=== PATIENT | male | born 1935 | race Caucasian/White ===

== ENCOUNTER 2019-04-20 23:06 | Emergency (ER) | payer MEDICARE ==
[~2019-04-20 23:06] MED LIST: cloNIDine 0.1 MG TAB ONE
[2019-04-20] MEDS ORDERED: cloNIDine 0.1 MG TAB ONE (23:25)
[2019-04-20] MEDS ORDERED: Nitroglycerin 2% Ointment 1 INCH/1 GM Packet ONE (23:25)
[2019-04-20] MEDS ORDERED: cloNIDine 0.1mg/24 Hour PATCH ONE (23:25)
[2019-04-20 23:28] LABS: Hemoglobin 12.4 g/dL (14.0-18.0); Mean Corpuscular HGB CONC 31.4 g/dL (32.0-36.0); Mean Corpuscular Hemoglobin 30.8 pg (27.0-31.0); Mean Corpuscular Volume 98.1 fL (78.0-98.0); Mean Platelet Volume 6.6 fL (7.4-10.4); Platelet Count 161 thou/uL (130-400); RBC Distribution Width 12.5 % (11.5-14.5); Red Blood Cell (RBC) Count 4.01 mill/uL (4.70-6.10); White Blood Cell (WBC) Count 4.5 thou/uL (4.8-10.8)
[2019-04-20 23:29] LABS: #Eosinphils 0.2 thou/uL (0.0-0.7); #Monocytes 0.4 thou/uL (0.11-0.59); #Neutrophils 2.9 thou/uL (1.40-6.50); %Basophils 0.9 % (0.0-1.0); %Eosinophils 4.8 % (0.0-10.0); %Lymphocytes 22.8 % (21.0-51.0); %Monocytes 8.4 % (0.0-10.0); %Neutrophils 63.2 % (42.0-75.0)
[2019-04-20 23:30] LABS: Manual Diff?? NO
[2019-04-20 23:47] LABS: ALT (SGPT) 12 U/L (8-55); AST (SGOT) 13 U/L (5-34); Albumin 3.5 g/dL (3.4-4.8); Alkaline Phosphatase 91 U/L (40-110); Anion Gap 13 mmol/L (10-20); BUN (Urea Nitrogen) 25 mg/dL (8.4-25.7); Bilirubin, Total 0.5 mg/dL (0.2-1.2); CK (CPK) 74 U/L (30-200); Calc. Creatinine Clearance 0 mL/min (70-130); Calcium 8.4 mg/dL (7.8-10.44); Carbon Dioxide 28 mmol/L (23-31); Chloride 107 mmol/L (98-107); Estimated GFR-MDRD 57; Globulin 2.6 g/dL (2.4-3.5); Glucose 132 mg/dL (83-110); Potassium 3.5 mmol/L (3.5-5.1); Protein, Total 6.1 g/dL (5.8-8.1); Sodium 144 mmol/L (136-145)
--- NOTE | 2019-04-20 23:50 | RAD ---
RADIOGRAPH CHEST 1 VIEW: DATE: 04/20/2019 HISTORY: 84-year-old male with hypertension. FINDINGS: There are no airspace densities, pulmonary edema, pneumothorax, or cardiomegaly. The lateral costophr enic angles are sharp. Sternotomy wires. IMPRESSION: 1. No acute cardiopulmonary findings. 2. Previous open-heart surgery.
[2019-04-20] MEDS ORDERED: Labetalol HCl 100 MG/20 ML VIAL ONE (23:59)
[2019-04-20] MEDS ORDERED: Aspirin 325 MG TAB ONE (23:59)
[2019-04-21 00:05] LABS: CKMB 2.1 ng/mL (0-6.6)
[2019-04-21] MEDS ORDERED: Sodium Chloride 0.9% 1,000 ML ONE (00:13)
== END 2019-04-21 00:24 | disposition short-term general hospital (02) ==
LOC: MADERS 23:06
DX: I10 Essential (primary) hypertension (principal); R79.89 Other specified abnormal findings of blood chemistry; I25.10 Atherosclerotic heart disease of native coronary artery without angina pectoris; Z95.1 Presence of aortocoronary bypass graft; Z79.899 Other long term (current) drug therapy; Z79.82 Long term (current) use of aspirin
CPT/HCPCS: 71045; 80053; 82550; 82553; 84484; 85025; 93005; 94760; J7050

== ENCOUNTER 2019-08-08 21:48 | Emergency (ER) | payer MEDICARE ==
[2019-08-08] MEDS ORDERED: Aspirin Chewable 81 MG TAB ONE (22:37)
[2019-08-08] MEDS ORDERED: Metoprolol Tartrate 50 MG TAB ONE (22:38)
[2019-08-08 22:43] LABS: #Eosinphils 0.2 thou/uL (0.0-0.7); #Monocytes 0.6 thou/uL (0.11-0.59); #Neutrophils 5.3 thou/uL (1.40-6.50); %Basophils 0.6 % (0.0-1.0); %Eosinophils 3.4 % (0.0-10.0); %Lymphocytes 13.9 % (21.0-51.0); Hemoglobin 13.1 g/dL (14.0-18.0); Mean Corpuscular HGB CONC 32.4 g/dL (32.0-36.0); Mean Corpuscular Hemoglobin 32.2 pg (27.0-31.0); Mean Corpuscular Volume 99.3 fL (78.0-98.0); Mean Platelet Volume 7.3 fL (7.4-10.4); Platelet Count 211 thou/uL (130-400); RBC Distribution Width 12.5 % (11.5-14.5); Red Blood Cell (RBC) Count 4.06 mill/uL (4.70-6.10); White Blood Cell (WBC) Count 7.2 thou/uL (4.8-10.8)
[2019-08-08 22:58] LABS: ALT (SGPT) 13 U/L (8-55); AST (SGOT) 16 U/L (5-34); Albumin 3.8 g/dL (3.4-4.8); Alkaline Phosphatase 88 U/L (40-110); Anion Gap 15 mmol/L (10-20); BUN (Urea Nitrogen) 25 mg/dL (8.4-25.7); Bilirubin, Total 0.5 mg/dL (0.2-1.2); CK (CPK) 131 U/L (30-200); Calc. Creatinine Clearance 0 mL/min (70-130); Calcium 8.5 mg/dL (7.8-10.44); Carbon Dioxide 25 mmol/L (23-31); Chloride 106 mmol/L (98-107); Estimated GFR-MDRD 57; Globulin 2.8 g/dL (2.4-3.5); Glucose 92 mg/dL (83-110); Potassium 3.6 mmol/L (3.5-5.1); Protein, Total 6.6 g/dL (5.8-8.1); Sodium 142 mmol/L (136-145)
[2019-08-08 23:04] LABS: CKMB 2.3 ng/mL (0-6.6)
[2019-08-08] MEDS ORDERED: Amlodipine 5 MG TAB ONE (23:19)
[2019-08-08] MEDS ORDERED: hydrALAZINE 10 MG TAB ONE (23:56)
--- NOTE | 2019-08-09 07:17 | RAD ---
CHEST 1 VIEW: Date: 08/08/2019 HISTORY: Hypertension. COMPARISON: Radiograph dated 04/20/2019. FINDINGS: Lungs are hypoinflated with bibasilar atelectasis. Heart size upper limits of normal. No pneumothorax . No confluent air space consolidation. No acute osseous abnormality. IMPRESSION: No acute intrathoracic abnormality. POS: HOME
== END 2019-08-09 00:25 | disposition home or self-care (01) ==
LOC: MADERS 21:48
DX: I10 Essential (primary) hypertension (principal); N40.0 Benign prostatic hyperplasia without lower urinary tract symptoms; I25.10 Atherosclerotic heart disease of native coronary artery without angina pectoris; Z79.899 Other long term (current) drug therapy; Z79.82 Long term (current) use of aspirin
CPT/HCPCS: 71045; 80053; 82550; 82553; 84484; 85025; 93005